=== PATIENT | female | born 1980 | race Caucasian/White ===

== ENCOUNTER 2016-08-04 20:21 | Emergency (ER) | payer BC ==
[~2016-08-04] VITALS: Ht 172.7 cm; Wt 72.7 kg
[2016-08-04 20:29] VITALS: TEMP 98.9
[2016-08-04] MEDS ORDERED: NORCO 325 MG-51 TAB PO ×2 (20:33→22:57)
[2016-08-04] MEDS ORDERED: AMOXICILLIN875 MG PO (20:33)
[2016-08-04] MEDS ORDERED: CLEOCIN HCL300 MG PO (22:57)
[2016-08-04] MEDS ORDERED: PHENERGAN 25 TA25 MG PO (22:57)
[2016-08-04 23:25] VITALS: BP 114/86; PULSE 73
== END 2016-08-04 23:32 | disposition home or self-care (01) ==
LOC: COL.ER 20:21
DX: K04.7 Periapical abscess without sinus (principal); K08.89 Other specified disorders of teeth and supporting structures; K03.81 Cracked tooth; K04.8 Radicular cyst
CPT/HCPCS: J1170; J1885; J2550; J7030

== ENCOUNTER 2017-01-30 01:58 | Emergency (ER) | payer BC ==
[~2017-01-30] VITALS: Ht 172.7 cm; Wt 63.6 kg
[~2017-01-30 01:58] MED LIST: AMOXICILLIN875 MG PO; CLEOCIN HCL300 MG PO; NORCO 325 MG-51 TAB PO; PHENERGAN 25 TA25 MG PO
[2017-01-30 02:02] VITALS: BP 154/94; PULSE 88; TEMP 98
[2017-01-30] MEDS ORDERED: PEN-VEE K500 MG PO (02:45)
[2017-01-30] MEDS ORDERED: ZOFRAN ODT4 MG PO (02:45)
[2017-01-30] MEDS ORDERED: NORCO 325 MG-51 TAB PO (02:45)
== END 2017-01-30 03:21 | disposition home or self-care (01) ==
LOC: COL.ER 01:58
DX: K04.7 Periapical abscess without sinus (principal); R68.84 Jaw pain; F17.210 Nicotine dependence, cigarettes, uncomplicated

== ENCOUNTER 2018-02-03 12:10 | Emergency (ER) | payer BC ==
[~2018-02-03] VITALS: Ht 172.7 cm; Wt 68.2 kg
[~2018-02-03 12:10] MED LIST changes: +PEN-VEE K500 MG PO; +ZOFRAN ODT4 MG PO
[2018-02-03 12:26] VITALS: BP 135/84; TEMP 99.1
[2018-02-03 12:51] LABS: BASO % 0.5 % (0.0-2.0); EOS # 0.1 (0.0-0.7); EOS % 1.1 % (0-4.0); GRAN # 3.8 (1.4-6.5); GRAN % 67.1 % (42.2-75.2); HEMATOCRIT 43.7 % (37.0-47.0); HEMOGLOBIN 15.7 g/dl (12.5-16.0); LYMPH # 1.3 (1.2-3.4); LYMPH % 22.8 % (20.0-51.0); MEAN CELL VOLUME 93 fl (80.0-100.0); MEAN CORPUSCULAR HEMOGLOBIN 33 pg (27.0-31.0); MEAN CORPUSCULAR HGB CONC 36 g/dl (33.0-37.0); MEAN PLATELET VOLUME 8.8 fl (7.4-10.4); MONO # 0.5 (0.1-0.6); MONO % 8.1 % (1.7-9.3); PLATELET COUNT 206 K/mm3 (130-400); REDCELL DISTRIBUTION WIDTH-CV 11.7 % (11.5-14.5)
[2018-02-03 13:03] LABS: ALANINE AMINOTRANSFERASE 114 U/L (9-52); ALBUMIN 4.7 gm/dL (3.5-5.0); ALKALINE PHOSPHATASE 31 U/L (50-136); ANION GAP 15 mmol/L (7-16); AST,SGOT 100 U/L (15-37); BILIRUBIN,TOTAL 0.9 mg/dL (0.0-1.0); BLOOD UREA NITROGEN 8 mg/dL (7-17); CALCIUM 9.6 mg/dL (8.4-10.2); CARBON DIOXIDE 29 mmol/L (22-30); CHLORIDE 94 mmol/L (98-107); CREATININE, serum 0.73 mg/dL (0.52-1.25); GLUCOSE 70 mg/dL (74-106); LIPASE 61 U/L (23-300); MAGNESIUM 1.8 mg/dL (1.6-2.3); PHOSPHOROUS 3.2 mg/dL (2.5-4.5); SODIUM 138 mmol/L (137-145); TOTAL PROTEIN 8.1 gm/dL (6.4-8.2)
[2018-02-03 13:11] LABS: ALCOHOL(ethanol),MEDICAL < 10 mg/dL
[2018-02-03 13:13] LABS: COLLECTION METHOD CLEAN CATCH
[2018-02-03 13:21] LABS: MUCOUS Present /lpf; PH 5 (5-8); URINE APPEARANCE Hazy; URINE BACTERIA None Seen /hpf; URINE BILIRUBIN Negative (NEGATIVE); URINE BLOOD Negative (NEGATIVE); URINE COLOR Yellow; URINE GLUCOSE Negative (NEGATIVE); URINE KETONE 2+ (NEGATIVE); URINE LEUKOCYTE ESTERASE Trace (NEGATIVE); URINE NITRATE Negative (NEGATIVE); URINE PROTEIN(semi-quant) Negative (NEGATIVE); URINE RBC 0-2 /hpf; URINE UROBILINOGEN Negative (NEGATIVE)
[2018-02-03 13:30] LABS: TRICYCLIC ANTIDEPRESS URINE NEGATIVE
[2018-02-03] MEDS ORDERED: VISTARIL 2525 MG/CAP PO (16:57)
[2018-02-03 17:28] VITALS: PULSE 89
== END 2018-02-03 17:30 | disposition home or self-care (01) ==
LOC: COL.ER 12:10
PROVIDERS: Emergency Medicine
DX: F41.9 Anxiety disorder, unspecified (principal); F32.9 Major depressive disorder, single episode, unspecified
CPT/HCPCS: J2060; J2405; J7030

== ENCOUNTER 2019-01-02 21:17 | Emergency (ER) | payer BC ==
[~2019-01-02] VITALS: Ht 172.7 cm; Wt 75.0 kg
[~2019-01-02 21:17] MED LIST changes: +VISTARIL 2525 MG/CAP PO
[2019-01-02 21:21] VITALS: BP 158/96; TEMP 99.5
[2019-01-03 00:35] VITALS: PULSE 96
== END 2019-01-03 00:33 | disposition home or self-care (01) ==
LOC: COL.ER 21:17
DX: S01.81XA Laceration without foreign body of other part of head, initial encounter (principal); S09.93XA Unspecified injury of face, initial encounter; Z23 Encounter for immunization; W21.07XA Struck by softball, initial encounter; Y92.830 Public park as the place of occurrence of the external cause

== ENCOUNTER 2019-12-30 19:03 | Emergency (ER) | payer BC ==
[2019-12-30 19:46] LABS: COLLECTION METHOD CLEAN CATCH
[2019-12-30 19:51] LABS: MUCOUS Present /lpf; PH 5 (5-8); URINE APPEARANCE Hazy; URINE BACTERIA None Seen /hpf; URINE BILIRUBIN Negative (NEGATIVE); URINE BLOOD Negative (NEGATIVE); URINE COLOR Yellow; URINE GLUCOSE Negative (NEGATIVE); URINE KETONE Trace (NEGATIVE); URINE LEUKOCYTE ESTERASE Negative (NEGATIVE); URINE NITRATE Negative (NEGATIVE); URINE PROTEIN(semi-quant) Negative (NEGATIVE); URINE RBC 0-2 /hpf; URINE UROBILINOGEN Negative (NEGATIVE)
[2019-12-30 20:02] LABS: BASO % 0.5 % (0.0-2.0); EOS # 0.2 (0.0-0.7); EOS % 2.4 % (0-4.0); GRAN # 4.4 (1.4-6.5); GRAN % 71.3 % (42.2-75.2); HEMATOCRIT 46.2 % (37.0-47.0); HEMOGLOBIN 16.1 g/dl (12.5-16.0); LYMPH # 1.2 (1.2-3.4); LYMPH % 19.2 % (20.0-51.0); MEAN CELL VOLUME 100 fl (80.0-100.0); MEAN CORPUSCULAR HEMOGLOBIN 35 pg (27.0-31.0); MEAN CORPUSCULAR HGB CONC 35 g/dl (33.0-37.0); MEAN PLATELET VOLUME 8.3 fl (7.4-10.4); MONO # 0.4 (0.1-0.6); MONO % 6.3 % (1.7-9.3); PLATELET COUNT 207 K/mm3 (130-400); RED BLOOD COUNT 4.61 M/mm3 (4.10-5.30)
[2019-12-30 20:02] LABS: TRICYCLIC ANTIDEPRESS URINE NEGATIVE
[2019-12-30 20:13] LABS: ALANINE AMINOTRANSFERASE 33 U/L (4-34); ALBUMIN 4.9 gm/dL (3.5-5.0); ALCOHOL(ethanol),MEDICAL 83 mg/dL; ALKALINE PHOSPHATASE 51 U/L (50-136); ANION GAP 13 mmol/L (7-16); AST,SGOT 48 U/L (15-37); BILIRUBIN,TOTAL 0.9 mg/dL (0.0-1.0); BLOOD UREA NITROGEN 5 mg/dL (7-17); CALCIUM 9.5 mg/dL (8.4-10.2); CARBON DIOXIDE 23 mmol/L (22-30); CHLORIDE 107 mmol/L (98-107); CREATININE, serum 0.88 (0.52-1.25); GLUCOSE 63 mg/dL (74-106); POTASSIUM 4.1 mmol/L (3.4-5.0); SODIUM 143 mmol/L (137-145); TOTAL PROTEIN 8.4 gm/dL (6.4-8.2)
[2019-12-30 20:25] LABS: ACETAMINOPHEN < 10 ug/mL (10-30); SALICYLATE < 1.0 mg/dL
[2020-01-01 09:48] VITALS: TEMP 98
[2020-01-03 05:50] VITALS: BP 127/87; PULSE 100
--- NOTE | 2020-01-03 13:03 | NUR ---
COLLIN connected to Zoom meeting for the patient's court hearing. During this time, the patient started yelling and pounding on the window and door in her room. Security was called. COLLIN updated the patient's business attorney on the patient's status. The ED doc ruled the patient unfit for hearing. The patient's business attorney reports that they can move forward with the hearing without having the patient present. The electrical prospecting operator granted involuntary placement at [facility] and the meeting was adjourned. COLLIN updated the patient's RN on the above information. The patient is awaiting placement.
== END 2020-01-03 18:50 ==
LOC: COL.ER 19:03
PROVIDERS: Emergency Medicine
DX: F10.10 Alcohol abuse, uncomplicated (principal); R45.851 Suicidal ideations; F10.20 Alcohol dependence, uncomplicated; F41.9 Anxiety disorder, unspecified

== ENCOUNTER 2023-05-19 16:03 | Emergency (ER) | payer BC ==
[~2023-05-19] VITALS: Ht 172.7 cm; Wt 109.1 kg
[2023-05-19 16:11] VITALS: TEMP 97.6
[2023-05-19] MEDS ORDERED: Ondansetron 4 MG/2 ML VIAL IV ONE (16:45)
[2023-05-19] MEDS ORDERED: Ketorolac 30 MG/ML VIAL IV ONE (16:45)
[2023-05-19 17:15] LABS: BASO % 0.3 % (0.0-2.0); EOS # 0.1 K/mm3 (0.0-0.7); EOS % 1.5 % (0.0-4.0); GRAN # 5.8 K/mm3 (1.4-6.5); GRAN % 72.6 % (42.2-75.2); HEMATOCRIT 43.3 % (37.0-47.0); HEMOGLOBIN 14.9 g/dl (12.5-16.0); LYMPH # 1.5 K/mm3 (1.2-3.4); LYMPH % 18.6 % (20.0-51.0); MEAN CELL VOLUME 94 fl (80.0-100.0); MEAN CORPUSCULAR HEMOGLOBIN 33 pg (27-31); MEAN CORPUSCULAR HGB CONC 34 g/dl (33.0-37.0); MEAN PLATELET VOLUME 8.6 fl (7.4-10.4); MONO # 0.5 K/mm3 (0.1-0.6); MONO % 6.7 % (1.7-9.3); PLATELET COUNT 274 K/mm3 (130-400); RED BLOOD COUNT 4.59 M/mm3 (4.10-5.30); REDCELL DISTRIBUTION WIDTH-CV 12.1 % (11.5-14.5)
[2023-05-19 17:32] LABS: ALBUMIN 3.9 gm/dL (3.5-5.0); BILIRUBIN,TOTAL 0.6 mg/dL (0.2-1.2); CALCIUM 9.9 mg/dL (8.4-10.2); CREATININE, serum 0.86 mg/dL (0.57-1.11); POTASSIUM 4.2 mmol/L (3.5-4.5); TOTAL PROTEIN 7.5 gm/dL (6.2-8.1)
[2023-05-19 18:02] LABS: COLLECTION METHOD CLEAN CATCH
[2023-05-19 19:14] LABS: URINE COLOR Yellow (YELLOW)
[2023-05-19 19:15] LABS: PH 5.5 (5.0-8.5); URINE APPEARANCE CLEAR (CLEAR/HAZY); URINE BLOOD Negative (NEGATIVE); URINE GLUCOSE Negative (NEGATIVE); URINE KETONE Negative (NEGATIVE); URINE NITRATE Negative (NEGATIVE); URINE PROTEIN(semi-quant) Negative (NEGATIVE); URINE RBC 0-2 /hpf (0-2); URINE UROBILINOGEN 0.2 E.U/dL (0.2-1.0)
[2023-05-19 19:16] LABS: URINE BACTERIA Moderate /hpf (NONE SEEN)
[2023-05-19] MEDS ORDERED: MACROBID 1100 MG/CAP PO (19:39)
[2023-05-19] MEDS ORDERED: Nitrofurantoin (Mono/Macro) 100 MG CAP PO ONE (19:45)
[2023-05-19 20:00] VITALS: BP 113/85; PULSE 81
== END 2023-05-19 20:00 | disposition home or self-care (01) ==
LOC: COL.ER 16:03
PROVIDERS: Physician Assistant
DX: N39.0 Urinary tract infection, site not specified (principal)
CPT/HCPCS: J1885; J2405